=== PATIENT | female | born 1950 | race Caucasian/White ===

== ENCOUNTER 2024-12-19 11:14 | Emergency (ER) | payer MEDICARE, SELFPAY ==
[2024-12-19 11:22] VITALS: BP 153/75
[2024-12-19] MEDS: LIORESAL 10 MG PO (12:03)
--- NOTE | 2024-12-19 12:22 | ED.GENMED ---
History of Present Illness
General
Chief Complaint: Fall
Source: patient
Time Seen by Provider: 12/19/24 11:38
History of Present Illness
History of Present Illness:
74-year-old female with past medical history of multiple sclerosis, GERD, diverticulitis, previous breast and thyroid cancer presenting to the ER for evaluation after she excellently slipped down 3 or 4 steps yesterday stating her legs got weak
causing her to fall and slid down the steps on her back. Patient noticed a sudden onset of lower back pain, worse to the left side which does seem to be a little bit improved this morning. Her children saw her this morning and patient was having a
hard time getting around so brought her to the ER for further evaluation. Patient believes she is in an MS flare (only treats her MS with anti-inflammatory diet and no medications), gets treated with gabapentin for neuropathy but currently is not
following with a neurologist. Patient denies any fevers, bladder or bowel incontinence. She does note pain is worse with range of motion and that it is harder for her to sit up and transition out of bed.
Past History
Past History
ED Past Medical History: Cancer, GERD and Other (Multiple sclerosis)
ED Past Surgical History: Appendectomy, Gynecological and Other (Thyroidectomy)
Social History
Tobacco: Non-smoker
Alcohol: None
Drug: None
Personal: Single
Living: alone
Review of Systems
Review of Systems
All Other Systems: ROS reviewed and negative except as documented in HPI and ROS
Phy Exam
Physical Exam
Physical Exam:
GENERAL: Alert , in no apparent distress at rest but does appear uncomfortable with movements
HEAD: NCAT
EYE: clear conjunctiva
NECK: Supple
ENT: o/p clr, mmm.
CARDIAC: Regular rate and rhythm .
LUNGS: Clear breath sounds bilaterally, no acute respiratory distress, no wheezes/rales/rhonchi. No chest wall tenderness
BACK: no signs of trauma. tenderness within left lateral thoracolumbar region
ABDOMEN: Soft, without focal tenderness, no r/g, no cvat
NEUROLOGICAL: Alert and oriented, intact and equal sensation to the bilateral lower extremities. Patient does have a harder time lifting her left leg up off the bed secondary to the pain
SKIN: Warm and dry, skin intact.
MUSCULOSKELETAL: well perfused. No signs of trauma to the bilateral upper or lower extremity
PSYCH: Normal and appropriate interaction.
Course
Orders/Labs/Results
Orders:
Orders
12/19/24 11:54
Baclofen [Lioresal] 10 mg PO NOW STA
CR Lumbar Spine Comp Min 4 Vw* Urgent
Comment:
Reason For Exam: fall, lower back pain
Vital Signs
Initial and Last Documented VS:
Initial Vital Signs
Temp Pulse Resp BP Pulse Ox
98.6 F 71 16 153/75 96
12/19/24 11:22 12/19/24 11:22 12/19/24 11:22 12/19/24 11:22 12/19/24 11:22
Last Documented Vital Signs
Temp Pulse Resp BP Pulse Ox
98.6 F 71 18 153/75 96
12/19/24 11:22 12/19/24 11:22 12/19/24 12:07 12/19/24 11:22 12/19/24 11:22
MDM/Problems Addressed
Differential Diagnosis Includes:
Thoracolumbar contusion, spinal fracture, visceral injury, MS flare, no concern for extremity related fracture, ambulatory dysfunction
MDM/Problems Addressed:
74-year-old female presenting to the ER for evaluation after an accidental slip and fall down approximately 3 or 4 steps yesterday evening around 7:00. Pain worse last night, somewhat improved now but still having a hard time getting up and
ambulating. Will obtain x-ray to further evaluate. Patient amenable to a muscle relaxer. I did offer physical therapy consult to see if patient is able to get up as well as the assist of an ambulatory device such as crutch or cane. Patient
deferring both of these options at this time. Will await for x-ray. Disposition pending.
Chronic conditions affecting care: Neurological disorder (MS)
*Radiology
Radiology exam reviewed: preliminary read by ED provider (No acute fracture)
*Pulse Oximetry
Patient hypoxic: no
*Critical Care Note
Total Time (30-74mins, 75-104mins- exclusive of procedures): Not Applicable
Patient Management
Escalation/DeEscalation of care consider admission/obs:
Patient's x-ray of the lumbar series does not show any acute fracture. There are mild degenerative changes noted. I again offered patient physical therapy consult, a walker and pain control for home however she continues to decline these options.
Patient ultimately would like to just be discharged home. She will follow-up with primary care provider. Aware of return precautions.
ED Attending Note
-
Portions of this chart may have been created with voice recognition software.� Occasional wrong word or��sound alike� substitutions may have occurred due to the inherent limitations of voice recognition software.
Discharge Plan
Departure
Patient Disposition: Home (Routine Discharge)
Date of Disposition: 12/19/24
Time of Disposition: 13:21
Patient with high blood pressure during this ER visit?: Yes
Discharge Problem:
Low back pain, Accidental fall
Instructions: Low back pain - ED discharge instructions
Prescriptions:
No Action
therapeutic multivitamin Tablet
1 tab PO DAILY
levothyroxine [Synthroid] 75 mcg Tablet
75 mcg PO DAILY
cholecalciferol (vitamin D3) [Vitamin D3] 25 mcg (1,000 unit) Capsule
25 mcg PO DAILY
Visbiome 112.5 billion cell Capsule
1 cap PO DAILY
magnesium oxide 400 mg magnesium Tablet
400 mg PO DAILY
pantoprazole 40 mg Tablet,Delayed Release (Dr/Ec)
40 mg PO BID Qty: 60 1RF
Referrals:
Frantz Santillan DO [Family Provider] -
Interventions
Interventions:
*Risk Screen - Suicide Last Done: 12/19/24 11:22
*General Assessment Last Done: 12/19/24 11:22
*Neglect/Abuse Screening Last Done: 12/19/24 11:22
*ED- Fall Risk Assessment Last Done: 12/19/24 13:31
*ED COVID-19 Vaccine History Last Done: 12/19/24 11:22
*Nursing Disposition Last Done: 12/19/24 13:31
ED-Musculoskeletal Assessment Last Done: 12/19/24 12:07
ED- Neurological Assessment Last Done: 12/19/24 12:07
ED-Skin Assessment Last Done: 12/19/24 12:07
Discharge Date and Time
Discharge Date/Time: 12/19/24 13:32
Print Language: ARABIC
== END 2024-12-19 13:32 | disposition home or self-care (01) ==
LOC: EMR 11:14
PROVIDERS: EMERGENCY PHYSICIAN Emergency Medicine; FAMILY PHYSICIAN Family Medicine
DX: M54.50 Low back pain, unspecified (principal); W10.9XXA Fall (on) (from) unspecified stairs and steps, initial encounter; G35 Multiple sclerosis
CPT/HCPCS: 99283; 72110